=== PATIENT | female | born 1940 | race Two or more races ===

== ENCOUNTER 2019-07-22 18:00 | Emergency (ER) | payer MEDICARE ==
[~2019-07-22] VITALS: Ht 152.4 cm; Wt 55.0 kg
--- NOTE | 2019-07-22 18:22 | NUR ---
CALLED FOR TRIAGE, IN RESTROOM.
[2019-07-22 18:44] VITALS: BP 159/72
--- NOTE | 2019-07-22 18:44 | NUR ---
PT TO [facility] FROM [facility]
[2019-07-22] MEDS ORDERED: GlyBURIDE 5 MG TABLET PO ONE (19:12)
--- NOTE | 2019-07-22 19:32 | NUR ---
Patient given discharge instructions and Rx, they have confirmed that they understand the instructions. Patient ambulatory with steady gait.
== END 2019-07-22 19:34 | disposition home or self-care (01) ==
LOC: ED 19:10
DX: E11.65 Type 2 diabetes mellitus with hyperglycemia (principal); I10 Essential (primary) hypertension; Z76.0 Encounter for issue of repeat prescription
CPT/HCPCS: 82962; 99283